=== PATIENT | male | born 1980 | race Caucasian/White ===

== ENCOUNTER → 2017-08-15 | Outpatient (CLI) | payer MEDICARE, OTHER ==
[~2017-08-15] MED LIST: CLOB0.055 TOPICAL; METO50TA PO
[2017-08-15 09:55] LABS: ALT (GPT) 36 U/L (12-78)
[2017-08-15 09:57] LABS: ALKALINE PHOSPHATASE 99 U/L (45-117); HDL CHOLESTEROL 53.6 MG/DL (40.0-60.0); LDL CHOLESTEROL 102 MG/DL (0-99); TOTAL BILIRUBIN ADULT 0.5 MG/DL (0.2-1.0)
[2017-08-15 10:00] LABS: ANION GAP 7 MEQ/L (5-15); AST (GOT) 22 U/L (15-37); BICARBONATE 23.7 MEQ/L (21.0-32.0); BLOOD UREA NITROGEN 17 MG/DL (7-18); CHLORIDE 106 MEQ/L (98-107); GLOMERULAR FILTRATION RATE 101 ML/MIN (>89); GLUCOSE,FASTING 95 MG/DL (74-99); POTASSIUM 3.9 MEQ/L (3.5-5.1); SODIUM (NA) 137 MEQ/L (136-145)
[2017-08-15 18:40] LABS: HEMOGLOBIN A1a 0.7 %; HEMOGLOBIN A1b 1.3 %; HEMOGLOBIN Ao 87.8 %; HEMOGLOBIN LA1C 1.7 %; HEMOGLOBIN P3 3.3 %
== END ==
LOC: CLAB 08:45
PROVIDERS: ATTEND Family Medicine
DX: E78.2 Mixed hyperlipidemia (principal); R73.02 Impaired glucose tolerance (oral)
CPT/HCPCS: 36415; 80053; 80061; 83036